=== PATIENT | male | born 1990 | race African-American/Black ===

== ENCOUNTER 2018-06-24 22:00 | Emergency (ER) | payer MEDICAID ==
[~2018-06-24] VITALS: Ht 180.3 cm; Wt 75.0 kg
[2018-06-25 05:04] LABS: EOSINOPHILS % 7.8 % (0.0-5.0); HEMATOCRIT. 34.3 % (42.0-52.0); HEMOGLOBIN. 11.1 g/dL (14.0-18.0); LYMPHOCYTES % 38.9 % (20.0-50.0); MEAN CORPUSCULAR HEMOGLOBIN 28.3 pg (28.0-32.0); MEAN CORPUSCULAR VOLUME 87.1 fL (80.0-94.0); MONOCYTES % 8.9 % (2.0-8.0); NEUTROPHILS % 43.4 % (40.0-76.0); PLATELET 342 x1000/uL (130-400); RED BLOOD CELL COUNT 3.94 mill/uL (4.7-6.1); RED CELL DISTRIBUTION WIDTH 13.8 % (11.6-14.6)
[2018-06-25 05:12] LABS: CHLORIDE 109 mEq/L (98-107)
[2018-06-25 05:48] VITALS: BP 102/52
== END 2018-06-25 05:48 | disposition home or self-care (01) ==
LOC: ER 22:00
DX: R60.9 Edema, unspecified (principal); F12.10 Cannabis abuse, uncomplicated; Z87.891 Personal history of nicotine dependence
CPT/HCPCS: 36415; 80048; 93970; 99284

== ENCOUNTER 2018-07-02 21:18 | Emergency (ER) | payer MEDICAID ==
[~2018-07-02] VITALS: Ht 182.9 cm; Wt 77.0 kg
[2018-07-02 21:35] VITALS: BP 122/77
[2018-07-02] MEDS ORDERED: FLUOXETINE HCL 10 MG CAPSULE PO STA (21:51)
[2018-07-02] MEDS ORDERED: LORAZEPAM 1MG TABLET PO ONE (22:00)
== END 2018-07-03 00:26 | disposition left against medical advice (07) ==
LOC: ER 21:18
DX: F41.9 Anxiety disorder, unspecified (principal); F32.9 Major depressive disorder, single episode, unspecified; F12.10 Cannabis abuse, uncomplicated; F17.200 Nicotine dependence, unspecified, uncomplicated
CPT/HCPCS: 99284

== ENCOUNTER 2018-07-03 06:20 | Emergency (ER) | payer MEDICAID ==
[~2018-07-03] VITALS: Ht 182.9 cm; Wt 77.0 kg
[2018-07-03 07:12] LABS: BASOPHILS % 0.7 % (0.0-2.0); EOSINOPHILS % 5.3 % (0.0-5.0); HEMATOCRIT. 38.7 % (42.0-52.0); HEMOGLOBIN. 12.8 g/dL (14.0-18.0); LYMPHOCYTES % 31.2 % (20.0-50.0); MEAN CORPUSCULAR HEMOGLOBIN 28.5 pg (28.0-32.0); MEAN CORPUSCULAR VOLUME 86.3 fL (80.0-94.0); MONOCYTES % 12.3 % (2.0-8.0); NEUTROPHILS % 50.5 % (40.0-76.0); PLATELET 519 x1000/uL (130-400); RED BLOOD CELL COUNT 4.49 mill/uL (4.7-6.1); RED CELL DISTRIBUTION WIDTH 13.5 % (11.6-14.6)
[2018-07-03 07:18] LABS: CHLORIDE 104 mEq/L (98-107)
[2018-07-03 07:22] LABS: ETHANOL BLOOD < 10 mg/dL
[2018-07-03] MEDS ORDERED: SODIUM CHLORIDE 0.9% 1,000 ML IV ONE (09:22)
[2018-07-03 09:46] LABS: CLARITY URINE CLEAR (CLEAR); COLOR URINE YELLOW (YELLOW); KETONES URINE NEGATIVE (NEGATIVE); LEUKOCYTE ESTERASE URINE NEGATIVE (NEGATIVE); NITRITE URINE NEGATIVE (NEGATIVE); OCCULT BLOOD URINE NEGATIVE (NEGATIVE); PROTEIN URINE NEGATIVE (NEGATIVE); SPECIFIC GRAVITY URINE 1.018 (1.005-1.030); UROBILINOGEN URINE 0.2 E.U./dL (0.2-1.0)
[2018-07-03 10:08] LABS: *AMPHETAMINES SCREEN URINE PRESUMTIVE POSITIVE (NEGATIVE); *BARBITURATES SCREEN URINE NEGATIVE (NEGATIVE); *BENZODIAZEPINES SCREEN URINE NEGATIVE (NEGATIVE); *COCAINE SCREEN URINE NEGATIVE (NEGATIVE); METHADONE URINE SCREEN NEGATIVE (NEGATIVE); OPIATES URINE SCREEN NEGATIVE (NEGATIVE)
[2018-07-03 10:09] LABS: CANNABINOID URINE SCREEN PRESUMTIVE POSITIVE (NEGATIVE); PHENCYCLIDINE URINE SCREEN NEGATIVE (NEGATIVE)
[2018-07-04 13:31] VITALS: BP 104/56
== END 2018-07-04 15:00 | disposition home or self-care (01) ==
LOC: ER 06:20
DX: R45.851 Suicidal ideations (principal); F15.10 Other stimulant abuse, uncomplicated; F32.9 Major depressive disorder, single episode, unspecified; Z59.0 Homelessness
CPT/HCPCS: 36415; 80048; 80305; 80307; 80320; 80329; 81003; 85025; 96360; 99284; J7030; Z7610; G0480

== ENCOUNTER 2018-07-21 09:21 | Emergency (ER) | payer MEDICAID ==
[~2018-07-21] VITALS: Ht 175.3 cm; Wt 80.0 kg
[2018-07-21] MEDS ORDERED: IBUPROFEN 600MG TABLET PO STA (09:51)
[2018-07-21 10:32] LABS: BASOPHILS % 0.3 % (0.0-2.0); EOSINOPHILS % 4.4 % (0.0-5.0); HEMATOCRIT. 32.7 % (42.0-52.0); HEMOGLOBIN. 10.7 g/dL (14.0-18.0); LYMPHOCYTES % 23.2 % (20.0-50.0); MEAN CORPUSCULAR HEMOGLOBIN 28.4 pg (28.0-32.0); MEAN CORPUSCULAR VOLUME 86.9 fL (80.0-94.0); MONOCYTES % 7.5 % (2.0-8.0); NEUTROPHILS % 64.6 % (40.0-76.0); PLATELET 447 x1000/uL (130-400); RED BLOOD CELL COUNT 3.76 mill/uL (4.7-6.1); RED CELL DISTRIBUTION WIDTH 13.5 % (11.6-14.6)
[2018-07-21 10:38] LABS: CHLORIDE 107 mEq/L (98-107)
[2018-07-21 10:39] LABS: INR 0.9; PROTHROMBIN TIME 9.6 sec (9.6-11.0)
[2018-07-23 06:31] VITALS: BP 126/66
== END 2018-07-21 11:14 | disposition home or self-care (01) ==
LOC: ER 09:21
DX: L03.116 Cellulitis of left lower limb (principal); R03.0 Elevated blood-pressure reading, without diagnosis of hypertension
CPT/HCPCS: 36415; 93971; 99284